=== PATIENT | male | born 2005 | race Two or more races ===

== ENCOUNTER 2025-03-05 23:25 | Emergency (ER) | payer MEDICAID, OTHER ==
[~2025-03-05] VITALS: Ht 185.4 cm; Wt 131.8 kg
--- NOTE | 2025-03-06 01:02 | DVH ---
CLINICAL INDICATION: FALL INJURY TECHNIQUE: XY R ANKLE 2 VIEW XRAY Comparison: None FINDINGS/IMPRESSION: : There is no evidence of acute fracture or dislocation. Moderate lateral malleolar soft tissue swelling. Soft tissues are otherwise unremarkable.
--- NOTE | 2025-03-06 01:19 | ED.PDOC ---
Back pain HPI HPI Comments PT PRESENTED TO ED FOR FALL INJURY X1 HOUR AGO WHILE TAKING TRASH OUT AT WORK. PT STATED HE STEPPED BACKAWARDS AND MISSED THE STEP. (+) NUMBNESS/TINGLING. CAP REFILL <3. RIGHT ANKLE SWELLING NOTED Chief Complaint: Fall Injury Time Seen by MD: 23:49 Reviewed Notes: Nurses Notes, Medications, Allergies Allergies: Coded Allergies: No Known Drug Allergy (Verified Allergy, Unknown, 03/06/25) Information Source: Patient Mode of Arrival: Wheelchair Past Medical History PAST MEDICAL HISTORY: Denies Surgical History: Denies all surgeries Family History Family History: Unknown Social History Smoker: Non-Smoker Alcohol: Denies ETOH Use Drugs: Denies Drug Use Constitutional: denies: chills, diaphoresis, fatigue, fever, malaise, sweats, weakness, others EENTM: denies: blurred vision, double vision, ear bleeding, ear discharge, ear drainage, ear pain, ear ringing, eye pain, eye redness, hearing loss, mouth pain, mouth swelling, nasal discharge, nose bleeding, nose congestion, nose pain, photophobia, tearing, throat pain, throat swelling, voice changes, others Respiratory: denies: cough, hemoptysis, orthopnea, SOB at rest, shortness of breath, SOB with excertion, stridor, wheezing, others Cardiovascular: denies: chest pain, dizzy spells, diaphoresis, Dyspnea on exertion, edema, irregular heart beat, left arm pain, lightheadedness, pa lpitations, PND, syncope, others Gastrointestinal: denies: abdomen distended, abdominal pain, blood streaked bowels, constipated, diarrhea, dysphagia, difficulty swallowing, hematemesis, melena, nausea, poor appetite, poor fluid intake, rectal bleeding, rectal pain, vomiting, others Genitourinary: denies: burning, dysuria, flank pain, frequency, hematuria, incontinence, penile discharge, penile sore, pain, testicle pain, testicle swelling, urgency, others Neurological: denies: dizziness, fainting, headache, left sided numbness, left sided weakness, numbness, paresthesia, pre-existing deficit, right sided numbness, right sided weakness, seizure, speech problems, tingling, tremors, weakness, others Musculoskeletal: reports: others (RIGHT ANKLE PAIN); denies: back pain, gout, joint pain, joint swelling, muscle pain, muscle stiffness, neck pain Integumetry: denies: bruises, change in color, change in hair/nails, dryness, laceration, lesions, lumps, rash, wounds, others Allergic/Immunocompromised: denies: Difficulty Healing, Frequent Infections, Hives, Itching, others Hematologic/Lymphatic: denies: anemia, blood clots, easy bleeding, easy bruising, swollen glands, others Endocrine: denies: excessive hunger, excessive sweating, excessive thirst, excessive urination, flushing, intolerance to cold, intolerance to heat, unexpl ained weight gain, unexplained weight loss, others Psychiatric: denies: anxiety, bipolar disorder, depression, hopeless, panic disorder, schizophrenia, sleepless, suicidal, others Physical Exam General Appearance: No Apparent Distress, Normal HEENT: Pharynx Normal Neck: Full Range of Motion, Non-Tender Respiratory: Lungs Clear, No Accessory Muscle Use, No Respiratory Distress, Normal Breath Sounds Cardiovascular: No Edema, No JVD, No Murmur, No Gallop, Normal Peripheral Pulses, Regular Rate/Rhythm Breast Exam: Deferred Gastrointestinal: No Organomegaly, Non Tender, No Pulsatile Mass, Normal Bowel Sounds, Soft Genitalia: Deferred Pelvic: Deferred Rectal: Deferred Extremities: No calf tenderness, Normal capillary refill, Normal inspection, Normal range of motion, Non-tender, No pedal edema Musculoskeletal : Location: Right Extremity Location: Ankle (MODERATE EDEMA MEDIAL RIGHT MALLEOLUS/ STRENGTH SENSORY MOTION INTACT POSITIVE PEDAL PULSE) Apperance: Normal Neurologic: Alert, recreation center director II-XII nml as Tested, No Motor Deficits, Normal Affect, Normal Mood, No Sensory Deficits Cerebellar Function: Normal Reflexes: Normal Skin: Dry, Normal Color, Warm Lymphatic: No Adenopathy Was a procedure done? Was a procedure done?: No Back Pain Differential Dx Differential Diagnosis: Fracture, Musculoskeletal Pain X-Ray, Labs, Meds, VS Vital Signs Date Time Temp Pulse Resp B/P (MAP) Pulse Ox O2 Delivery O2 Flow Rate FiO2 03/06/25 01:22 102 19 98 Room Air* 0 21 21 03/06/25 01:21 98.7 102 19 128/85 (99) 98 98.7 03/05/25 23:45 98.7 107 16 139/113 (122) 97 98.7 Current Medications Medications (Trade) Dose Ordered Sig/Loida Route Start Time Stop Time Status Last Admin Ketorolac Tromethamine (Toradol Injection) 60 mg ONCE ONCE IM 03/06/25 00:30 03/06/25 00:31 DC 03/06/25 01:27 X-Ray, Labs, Meds, VS Comment RIGHT ANKLE X-RAY SHOWS NO ACUTE FRACTURES DOES SHOW MODERATE EDEMA ABOUT THE LATERAL ASPECT OF THE ANKLE. LIKELY SPRAIN PATIENT PLACED IN STIRRUP SPLINT CRUTCHES PROVIDED ALONG WITH TRAINING. SCRIPT IBUPROFEN ADVISED TO TAKE MEDICATIONS PRESCRIBED SIDE EFFECTS DISCUSSED. ADVISED TO FOLLOW UP WITH EMPLOYEE [facility], CONSIDER FURTHER IMAGING SUCH MRI IF SYMPTOMS PERSIST. ADVISED ON RICE. DISCUSSED ER RETURN PRECAUTIONS PATIENT INDICATES UNDERSTANDING AGREES WITH DISCHARGE PLAN OF CARE. Time of 1ST Reevaluation: 00:35 Reevaluation 1ST: Unchanged Time of 2ND Reevaluation: 01:17 Reevaluation 2ND: Improved Patient Education/Counseling: Diagnosis, Treatment, Prognosis, Need For Follow Up Family Education/Counseling: Diagnosis, Treatment, Prognosis, Need For Follow Up Departure 1 Departure Time of Disposition: 01:18 Impression: Primary Impression: Right ankle sprain Qualified Codes: S93.401A - Sprain of unspecified ligament of right ankle, initial encounter Disposition: 01 HOME / SELF CARE / HOMELESS Condition: Stable Discharged With: Relative (UNCLE) Critical Care Note Critical Care Time?: No Stability Stability form required: SAUL Shanks March 06, 2025 01:19
[2025-03-06 01:21] VITALS: BP 128/85; TEMP 98.7
[2025-03-06 01:22] VITALS: PULSE 102; RESP 19; O2SAT 98
[2025-03-06] MEDS: KETOROLAC TROMETH 60MG/2ML VIAL IM ONE (01:27)
== END 2025-03-06 02:01 | disposition home or self-care (01) ==
LOC: ER 23:25
DX: S93.491A Sprain of other ligament of right ankle, initial encounter (principal); W18.39XA Other fall on same level, initial encounter; Y93.01 Activity, walking, marching and hiking; Y92.89 Other specified places as the place of occurrence of the external cause; Y99.8 Other external cause status
CPT/HCPCS: 29515; 73600; 96372; 99283; J1885